=== PATIENT | male | born 1975 | race Caucasian/White ===

== ENCOUNTER 2016-10-24 20:21 | Emergency (ER) | payer OTHER ==
[~2016-10-24] VITALS: Ht 182.9 cm; Wt 74.8 kg
[2016-10-24 20:45] VITALS: BP 161/84
[2016-10-24] MEDS ORDERED: IBUPROFEN 600 MG TAB PO ONE (22:15)
[2016-10-24] MEDS ORDERED: CYCLOBENZAPRINE HCL 10 MG TAB PO ONE (22:15)
== END 2016-10-24 23:37 | disposition home or self-care (01) ==
LOC: EDBD 20:21 → ER 20:26
DX: S20.212A Contusion of left front wall of thorax, initial encounter (principal); S70.02XA Contusion of left hip, initial encounter; S70.212A Abrasion, left hip, initial encounter; I10 Essential (primary) hypertension; G62.9 Polyneuropathy, unspecified; W20.8XXA Other cause of strike by thrown, projected or falling object, initial encounter; Y93.89 Activity, other specified; Y99.8 Other external cause status; Y92.89 Other specified places as the place of occurrence of the external cause; Z88.1 Allergy status to other antibiotic agents
CPT/HCPCS: 71101

== ENCOUNTER 2016-12-23 04:58 | Emergency (ER) | payer OTHER ==
[~2016-12-23] VITALS: Ht 182.9 cm; Wt 74.8 kg
[2016-12-23 07:02] LABS: Basophils # (auto) 0 uL; Basophils % (auto) 0.7 % (0.0-2.0); CONDITION Y; Eosinophils # (auto) 0 uL; Eosinophils % (auto) 0.2 % (0.0-7.0); Hematocrit 37.6 % (41.0-53.0); Hemoglobin 13.1 g/dL (13.5-17.5); Lymphocytes # (auto) 0.7 uL; Lymphocytes % (auto) 12.2 % (10.0-50.0); Mean Corpuscular Hemoglobin 35.3 pg (28.0-32.0); Mean Corpuscular Hgb Conc. 34.7 g/dL (32.0-36.0); Mean Corpuscular Volume 101.5 fL (80.0-100.0); Mean Platelet Volume 10.2 fL (7.4-10.4); Monocytes # (auto) 0.6 uL; Monocytes % (auto) 10.4 % (0.0-12.0); Neutrophils # (auto) 4.2 uL; Neutrophils % (auto) 76.5 % (37.0-80.0); Platelet Count (auto) 85 10^3/uL (140-450); SUSPECT SEE PRINTOUT; White Blood Cell 5.5 10^3/uL (4.4-10.8)
[2016-12-23] MEDS ORDERED: SODIUM CHLORIDE 0.9% 1,000 ML IV ONE ×2 (07:14→07:15)
[2016-12-23] MEDS ORDERED: LORazepam 2MG/ML-1ML VIAL IV ONE (07:15)
[2016-12-23] MEDS ORDERED: diphenhdrAMINE HCL 50 MG/1 ML VL IV ONE (07:15)
[2016-12-23 07:35] LABS: BUN/Creatinine Ratio 7.1; Potassium 3.5 mmol/L (3.5-5.1)
[2016-12-23 07:36] LABS: Albumin 3.5 g/dL (3.4-5.0); Bilirubin, Total 1.2 mg/dL (0.2-1.0); Calcium 8.7 mg/dL (8.5-10.1); Total Protein 7.1 g/dL (6.4-8.2)
[2016-12-23] MEDS ORDERED: DIAZEPAM 5 MG/ML 2ML SYRG IV ONE ×2 (09:30→11:15)
[2016-12-23 10:20] LABS: Urine RBC None Seen /hpf (0 - 3)
[2016-12-23 10:29] LABS: Urine Bilirubin Negative (Negative); Urine Blood Negative /uL (Negative); Urine Color Yellow (Yellow); Urine Glucose Normal (Normal); Urine Hyaline Cast FEW /lpf (0 - 2); Urine Nitrite Negative (Negative); Urine Urobilinogen Normal (Negative)
[2016-12-23] MEDS ORDERED: chlordiazePOXIDE HCL 25 MG CAP PO ONE (10:30)
[2016-12-23 10:46] LABS: Urine Ketone 1+ (Negative)
[2016-12-23 13:05] VITALS: BP 163/98
[2016-12-24] MEDS ORDERED: THIAMINE INJ 100 MG, MULTIPLE VITAMIN 10 ML, FOLIC ACID 1 MG, MAGNESIUM SULF SDV 50% 8 ... IV SCH ×5 (12:00)
== END 2016-12-23 13:21 | disposition short-term general hospital, planned readmission (82) ==
LOC: ER 04:58 → EDBD 04:58 → ER 13:21
DX: F10.20 Alcohol dependence, uncomplicated (principal); F41.9 Anxiety disorder, unspecified; F22 Delusional disorders; I10 Essential (primary) hypertension
CPT/HCPCS: 36415; 70450; 71010; 80053; 80307; 80320; 80329; 81001; 85025; 96361; 96374; 96375; 99285; J1200; J2060; J3360; J7030